=== PATIENT | female | born 1955 | race Caucasian/White ===

== ENCOUNTER 2021-04-19 05:43 | Outpatient (CLI) | payer BC ==
[~2021-04-19] VITALS: Ht 162.6 cm; Wt 133.0 kg
[2021-04-19] MEDS ORDERED: FLUT1DIS28 IH (12:43)
== END 2021-04-19 15:41 | disposition home or self-care (01) ==
LOC: PREOP 05:43
PROVIDERS: ATTEND Surgery
DX: Z01.818 Encounter for other preprocedural examination (principal)

== ENCOUNTER 2021-04-23 11:18 | Day surgery (SDC) | payer BC ==
[~2021-04-23] VITALS: Ht 163 cm; Wt 60.3 kg
[~2021-04-23 11:18] MED LIST: FLUT1DIS28 IH
[2021-04-23] MEDS ORDERED: LACTATED RINGERS 1,000 ML IV ONE (11:29)
[2021-04-23 12:06] VITALS: BP 115/65
[2021-04-23] MEDS ORDERED: PROPOFOL INJECTION 50 ML IV ONE (13:06)
--- NOTE | 2021-04-23 13:08 | Progress Note-Pre Operative ---
Pre-Operative Progress Note H&P Reviewed The H&P was reviewed, patient examined and no changes noted. Time Seen by Provider: 12:27 Date H&P Reviewed: Apr 23, 2021 Time H&P Reviewed: 12:27 Pre-Operative Diagnosis: Screening colon, Family hx of stomach CA Addendum Physician Addendum Addendum I discussed with pt the EGD, had discussed this in my office; unfortunately not in my note. She has a family hx of stomach CA and was requesting an EGD. I believe this is reasonable. We discussed risks and complications of EGD; not limited to pain, bleeding and even esophageal perforation. All questions a nswered to her satisfaction Progress 13:06 ANSON FERNANDEZ DO Apr 23, 2021 13:08
[2021-04-23] MEDS ORDERED: HURRICAINE EXT TUBE (BENZOCAINE) ONE (13:35)
[2021-04-23 14:00] VITALS: BP 96/50
--- NOTE | 2021-04-23 14:00 | Progress Note-Post Operative ---
Post-Operative Progess Note Surgeon (s)/Blood Bank Laboratory Technologist (s) Surgeon ANSON FERNANDEZ DO Blood Bank Laboratory Technologist: Lee Everett, ISIDROII Pre-Operative Diagnosis Screening colon, Family hx of stomach CA Post-Operative Diagnosis Duodenal polyps Gastritis Esophagitis Hiatal hernia - small colon polyps int hemorrhoids Procedure & Operative Findings Date of Procedure 04/23/21 Procedure Performed/Findings EGD with bx Colon with snare PROCEDURE NOTE: After informed consent was obtained, the patient was brought to the endoscopy suite, placed in bed in left lateral decubitus position. She was administered IV sedation by the INORGANIC CHEMIST who then monitored vitals the entire time, heart rate, blood pressure and pulse ox and the scope was inserted down the mouth through the esophagus into the stomach. On the way down, noted some mild esophagitis, took a picture, pushed into the stomach, pushed past the antrum into the duodenum. Duodenum had what looked like polyps and elected to do a biopsy here. Pulled back and did a biopsy of the antrum, then retroflexed the scope and saw a very small 3-4 mm hiatal hernia. Took a picture of this and then pulled the scope into the GE junction and then did a biopsy of the GE junction. Pushed the scope back into the stomach, suctioned all the air out of the stomach. At this point pulled the scope up the esophagus and out the mouth. Switched camera, switched gloves, went down below, started the colonoscopy. Pushed all the way into about 140 cm to get all the way to cecum, took a picture of the appendiceal orifice, noted the ileocecal valve and then slowly withdrew the scope, insufflating to look circumferentially at the cardenas. Starting in the cecum, up the ascending colon to the hepatic flexure, then down the transverse colon to the splenic flexure. Into the descending colon where I saw a flat polyp and elected to do a snare with cautery. Continue down into the sigmoid and finally into the rectum; where I actually found 3 more polyps, which were removed with snare. Finally retroflexed in the rectal vault, saw some minimal internal hemorrhoids and took a picture of this. The patient tolerated the procedure and she recovered in the endoscopy suite. Anesthesia Type IV sedation by INORGANIC CHEMIST Estimated Blood Loss Estimated blood loss (mL): scant Specimens/Packing Specimens Removed duodenal bx antral bx body of stomach bx GE jxn bx Desc colon polyp rectal polyp x 3 ANSON FERNANDEZ DO Apr 23, 2021 14:00
--- NOTE | 2021-04-23 14:01 | Endoscopy Discharge Instruct ---
Endo Procedure/Findings Findings 1.: Gastritis, Other Findings (Duodenal polyps) 2.: Hiatal Hernia, Other Findings (esophagitis) 3.: Polyp 4.: Internal Hemorrhoids Discharge Instructions - Activity: You might feel a little sleepy until tomorrow. This is due to the medicine you received to relax you. Until tomorrow, you should: NOT drive a car, operate machinery or power tools. NOT drink any alcoholic beverages. NOT make any important decisions or sign importortant papers. Do not return to work until tomorrow, unless otherwise instructed. Resume previous activities tomorrow. Diet: Start by taking liquids. If you tolerate liquids, advance to solid food. 1.: EGD in 1 year 2.: Colonscopy in 3 years Notify Physician - If you experience excessive bleeding, unusual abdominal pain, fever, or chest pain, contact your doctor immediately. ANSON FERNANDEZ DO Apr 23, 2021 14:01
[2021-04-23 14:30] VITALS: BP 116/66
--- NOTE | 2021-04-25 08:24 | Anesthesia-General Post-Op ---
MAC Patient Condition Mental Status/LOC: Same as Preop Cardiovascular: Satisfactory Nausea/Vomiting: Absent Respiratory: Satisfactory Pain: Controlled Complications: Absent Post Op Complications Complications None Follow Up Care/Instructions Patient Instructions None needed. Anesthesiology Discharge Order Discharge Order Patient was seen and doing well after the procedure, no complaints, stable vital signs, no apparent adverse anesthesia problems. MATTHEW MENDOZA DO Apr 25, 2021 08:24
== END 2021-04-23 14:45 | disposition home or self-care (01) ==
LOC: ENDO 11:18
PROVIDERS: ATTEND Surgery
DX: Z12.11 Encounter for screening for malignant neoplasm of colon (principal); K59.00 Constipation, unspecified
CPT/HCPCS: 88305